=== PATIENT | male | born 1975 | race Caucasian/White ===

== ENCOUNTER 2017-01-11 10:19 | Emergency (ER) | payer OTHER ==
--- NOTE | 2017-01-11 10:37 | EDM.PDOC ---
ED HISTORY OF PRESENT ILLNESS - General Chief Complaint: Asthma Stated Complaint: [id number] Pneumonia Time Seen by Provider: 01/11/17 10:34 Source of Information: Reports: Patient History Limitations: Reports: No limitations - History of Present Illness INITIAL COMMENTS - FREE TEXT/NARRATIVE: 41 yo white male c/o productive cough ( yellow ) sputum X 2 days w/o fever or chills Symptom Onset Date: 01/10/17 Symptom Onset Time: 15:00 Timing/Duration: Reports: Day(s): Severity: moderate Location, General: Reports: chest Associated Symptoms (General): Reports: cough w sputum - Related Data Allergies/ADRs: Allergies Allergy/AdvReac Type Severity Reaction Status Date / Time No Known Allergies Allergy Verified 01/11/17 10:31 Home Meds: Home Meds Albuterol [IJD: Ventolin HFA] 2 puff INH ASDIRECTED PRN 01/11/17 [History] Allopurinol [Zyloprim] 200 mg PO DAILY 01/11/17 [History] Cetirizine HCl [Zyrtec] 10 mg PO DAILY 01/11/17 [History] Fluticasone Propionate [Flonase] 2 puff NASBOTH DAILY 01/11/17 [History] Mometasone/Formoterol [Dulera 100-5 MCG] 2 puff INH DAILY 01/11/17 [History] Montelukast [Singulair] 10 mg PO DAILY 01/11/17 [History] ED ROS GENERAL - Review of Systems Review Of Systems: See Below Constitutional: Reports: fatigue HEENT: Reports: No symptoms Respiratory: Reports: Cough, Sputum Cardiovascular: Reports: No symptoms Endocrine: Reports: no symptoms GI/Abdominal: Reports: No symptoms Musculoskeletal: Reports: no symptoms Skin: Reports: no symptoms Neurological: Reports: No Symptoms Psychiatric: Reports: No symptoms Hematologic/Lymphatic: Reports: no symptoms Immunologic: Reports: no symptoms ED EXAM, GENERAL - Physical Exam Exam: See Below Exam Limited By: No limitations General Appearance: alert, WD/WN, no apparent distress Eye Exam: bilateral eye: PERRL Ears: normal external exam Nose: normal inspection Throat/Mouth: Normal inspection Head: atraumatic Neck: normal inspection Respiratory/Chest: rhonchi, other (min right lung wheeze) Cardiovascular: normal peripheral pulses, regular rate, rhythm GI/Abdominal: normal bowel sounds, soft Back Exam: normal inspection Extremities: normal inspection Neurological: alert, oriented, CN II-XII intact Psychiatric: normal affect Skin Exam: Warm, Dry Course - Vital Signs Last Recorded V/S: Last Vital Signs Temp 36.4 C 01/11/17 10:26 Pulse 107 H 01/11/17 10:26 Resp 18 01/11/17 10:26 BP 130/74 01/11/17 10:26 Pulse Ox 98 01/11/17 10:26 - Orders/Labs/Meds Orders: Active Orders 24 hr Category Date Time Status RT Aerosol Therapy [RC] ASDIRECTED Care 01/11/17 10:46 Active Chest 2V [CR] Urgent Exams 01/11/17 10:37 Taken Meds: Medications Discontinued Medications Generic Name Dose Route Start Last Admin Trade Name Jessica PRN Reason Stop Dose Admin Albuterol/Ipratropium 3 ml 01/11/17 10:46 Duoneb 3.0-0.5 Mg/3 Ml NEB 01/11/17 10:47 ONETIME ONE Departure - Departure Time of Disposition: 11:01 Disposition: Home, Self-Care 01 Condition: good Clinical Impression: Exacerbation of asthma, Bronchitis Instructions: Acute Bronchitis, [id number], Asthma, Adult Additional Instructions: Increase intake of Fluids ( Water / Juice) Take Medications as prescribed only: Z-Len # 1 Tessalon Perles 100mg TID # 30 ProAir MDI 2 puffs QID as needed F/U w/ PCP - My Orders Last 24 Hours: My Active Orders 01/11/17 10:37 Chest 2V [CR] Urgent 01/11/17 10:46 RT Aerosol Therapy [RC] ASDIRECTED - Assessment/Plan Last 24 Hours: My Active Orders 01/11/17 10:37 Chest 2V [CR] Urgent 01/11/17 10:46 RT Aerosol Therapy [RC] ASDIRECTED
[2017-01-11] MEDS ORDERED: Albuterol/Ipratropium 3.0-0.5 MG/3 ML Neb Soln NEB ONE (10:46)
[2017-01-11 10:54] VITALS: BP 130/74
== END 2017-01-11 11:25 | disposition home or self-care (01) ==
LOC: DL.ED 10:19
DX: J45.901 Unspecified asthma with (acute) exacerbation (principal); Z79.899 Other long term (current) drug therapy
CPT/HCPCS: 71020; 94640; 99285